=== PATIENT | male | born 1955 | race Asian ===

== ENCOUNTER 2016-07-29 11:00 | Inpatient (IN) | payer OTHER ==
--- NOTE | 2016-07-18 22:18 | HP ---
Amended report to correct date of admission/surgery. HISTORY AND PHYSICAL: DATE OF ADMISSION/SURGERY: 08/14/16 DATE OF OFFICE VISIT: 07/18/16 ATTENDING SURGEON: Dr. Simran Toney. PROCEDURE: Right total knee arthroplasty. CHIEF COMPLAINT: Right knee pain. HISTORY OF PRESENT ILLNESS: Mr. Prince is a 61-year-old gentleman that has had bilateral knee pain and arthritis for several years now. He is accompanied by his son, who is acting as a content development specialist. The patient reports that he continues to have 7 to 9/10 knee pain. He can no longer walk half of a block without severe pain. He has failed conservative treatment with anti-inflammatories, pain medication, intraarticular injections as well as physical therapy. He would like to undergo a right total knee arthroplasty which he would like to schedule for 07/29/16. PAST MEDICAL HISTORY: Ischemic heart disease with a past ID, hypertension, and gout. PAST SURGICAL HISTORY: Balloon angioplasty in 2011, cardiac stent. MEDICATIONS: 1. Simvastatin 40 mg 1 by mouth every night at bedtime. 2. Naproxen 500 mg 1 tablet q.12 hours p.r.n. pain. 3. Losartan potassium 50 mg 1 p.o. b.i.d. 4. Metoprolol 50 mg 1 p.o. b.i.d. 5. Aspirin 81 mg p.o. 6. Nitrostat 0.4 mg sublingual prn. 7. Allopurinol 300 mg 2 by mouth every day. ALLERGIES: No known drug allergies. FAMILY HISTORY: Negative. SOCIAL HISTORY: The patient lives with his spouse, works at [employer]. No tobacco, alcohol, or recreational drug use. Daughter and son-in-law are translators as much as possible. REVIEW OF SYSTEMS: General: The patient denies any fever, chills, or night sweats or anesthesia problems. HEENT: The patient denies any headaches, lightheadedness, or syncopal episodes. Integument: The patient denies any abrasions, lesions, or open wounds. Cardio: The patient denies any chest pain , palpitations, or edema. Pulmonary: The patient denies any shortness of breath with exertion, chronic cough, or COPD. GI: The patient denies any nausea, vomiting, diarrhea, or constipation. : The patient denies any nocturia, urinary frequency, urinary urgency, or history of UTIs. MSK: The patient admits to bilateral knee pain. Neuro: The patient denies any paresthesias or numbness. Endocrine: The patient denies any diabetes or thyroid issues. PHYSICAL EXAMINATION GENERAL: The patient is awake, alert, and oriented in no acute distress with appropriate mood and affect. PULMONARY: Lungs are clear to auscultation. Normal breath sounds. No wheezes , rales, or rhonchi. CARDIO: Regular rate and rhythm with normal S1, S2. No appreciable S3 or S4. No murmurs, rubs, or gallops. No edema. ABDOMEN: Positive bowel sounds in all 4 quadrants. Soft and nontender to palpation. MSK: The patient has extension to 10 degrees and flexion to about 95 degrees. This is the right lower extremity. Skin: The patient's skin is intact. There are no abrasions or open wounds. The patient has significant valgus deformity of knees. No varus or valgus instability. No varicosity or edema. No palpable masses or lymph nodes. 5/5 ankle dorsiflexion and plantar flexion strength. Full sensation to light touch in all nerve distributions and 2+ palpable dorsalis pedis pulse. IMAGING: Previous x-rays were reviewed and found to be suitable to undergo a right total knee replacement. ASSESSMENT: H and P for right total knee arthroplasty due to severe end-stage right knee osteoarthritis. PLAN: The patient is scheduled to undergo a right total knee arthroplasty on . He will return to the office in 10 to 14 days postop for followup and suture removal. A prescription for warfarin 2 mg, Percocet 5/325, Colace 100 mg was e-prescribed to the patient's pharmacy for postoperative pain management. FARHANA MORTON [id number]/[facility] #: [id number] NIKITA
[2016-08-13] MEDS ORDERED: Buffered Lidocaine 0.9% SYRIN* 5 ML/SYR SYRINGE INTRADERM ONE (14:41)
[2016-08-14] MEDS ORDERED: Dexamethasone IV* 4 MG/ML 1 ML (4 MG) IV SLOW PU ONE (06:00)
[2016-08-14] MEDS ORDERED: Scopolamine 1.5 mg* PATCH TRANSDERM ONE (06:00)
[2016-08-14] MEDS ORDERED: Famotidine IV* 10 MG/ML 2 ML (20 mg) IV ONE (06:00)
[2016-08-14] MEDS ORDERED: Scopolamine 1.5 mg* PATCH ONE (06:50)
[2016-08-14] MEDS ORDERED: Famotidine IV* 10 MG/ML 2 ML (20 mg) ONE (06:50)
[2016-08-14] MEDS ORDERED: Dexamethasone IV* 4 MG/ML 1 ML (4 MG) ONE (06:50)
[2016-08-14] MEDS ORDERED: ceFAZolin 2 GM PREMIX(*) 2 GM/50 ML BAG IVPB ONE (06:50)
[2016-08-14] MEDS ORDERED: Buffered Lidocaine 0.9% SYRIN* 5 ML/SYR SYRINGE ONE (06:51)
[2016-08-14] MEDS ORDERED: fentaNYL* 50 MCG/ML 2 ML VIAL (100 MCG VIAL) ONE (07:56)
[2016-08-14] MEDS ORDERED: Midazolam* 1 MG/ML 5 ML VIAL (5 MG) ONE (07:56)
[2016-08-14] MEDS ORDERED: Morphine PF AMP (0.5MG/ML)* 5 MG/10 ML AMP ONE (08:04)
[2016-08-14] MEDS ORDERED: Bupivacaine 0.5% SDV PF* 30 ML VIAL ONE (08:04)
[2016-08-14] MEDS ORDERED: EPHEDrine (Pressors)* 50 MG/ML VIAL ONE (08:35)
[2016-08-14] MEDS ORDERED: Propofol* 10 MG/ML 20 ML BTL IV PUSH ONE ×5 (08:42→10:39)
[2016-08-14] MEDS ORDERED: Lidocaine 2% PF * 5 ML VIAL ONE (08:42)
[2016-08-14] MEDS ORDERED: Metoprolol Tartrate IV* 1 MG/ML 5 ML VIAL ONE (09:23)
[2016-08-14] MEDS ORDERED: Phenylephrine IV* 40 MCG/ML 10 ML SYRINGE ONE (09:37)
[2016-08-14] MEDS ORDERED: PROCHLORPERAZINE INJ 5 MG/ML 2 ML VIAL IV PRN (09:48)
[2016-08-14] MEDS ORDERED: oxyCODONE TAB* 5 MG TAB PO PRN ×2 (09:48→09:49)
[2016-08-14] MEDS ORDERED: Acetaminophen IV 1GM/100ML * 100 ML IVPB ONE (09:48)
[2016-08-14] MEDS ORDERED: fentaNYL* 50 MCG/ML 2 ML VIAL (100 MCG VIAL) IV PRN (09:48)
[2016-08-14] MEDS ORDERED: Nalbuphine* 20 MG/ML 1 ML VIAL IV PRN ×2 (09:48→09:49)
[2016-08-14] MEDS ORDERED: Ondansetron INJ* 2 MG/ML VIAL IV PRN (09:49)
[2016-08-14] MEDS ORDERED: Naloxone* 0.4 MG/ML 1 ML VIAL IV PRN (09:49)
[2016-08-14] MEDS ORDERED: Lactated Ringers 500 ml BAG* 500 ML IV PRN ×2 (09:54→23:46)
[2016-08-14] MEDS ORDERED: EPHEDrine (Pressors)* 50 MG/ML VIAL IV PUSH PRN (09:54)
[2016-08-14] MEDS ORDERED: Phenylephrine INJ* 10 MG/ML 1 ML VIAL (10 MG) ONE (10:02)
[2016-08-14] MEDS ORDERED: Ropivacaine 0.2% EPIDURAL* 200 MG/100 ML BAG EPIDURAL ONE (10:35)
[2016-08-14] MEDS ORDERED: Acetaminophen IV 1GM/100ML * 100 ML ONE (10:41)
[2016-08-14] MEDS ORDERED: Magnesium Hydroxide LIQ* 30 ML UDC PO PRN (11:08)
[2016-08-14] MEDS ORDERED: Polyethylene Glycol 3350* 17 GM PACKET PO PRN (11:08)
[2016-08-14] MEDS ORDERED: Bisacodyl SUPP* 10 MG SUPP PR PRN (11:08)
[2016-08-14] MEDS ORDERED: Acetaminophen TAB* 325 MG PO PRN (11:08)
[2016-08-14] MEDS ORDERED: diPHENhydraMINE IV* 50 MG/ML 1 ml VIAL (BENADRYL) IV PRN (11:08)
[2016-08-14] MEDS ORDERED: Nitroglycerin TAB 0.4 MG* 0.4 MG TAB SL PRN (11:15)
[2016-08-14] MEDS ORDERED: Lidocaine 1% MPF wEPI 200,000* 30 ML SDV ONE (11:45)
[2016-08-14] MEDS ORDERED: Nalbuphine* 20 MG/ML 1 ML VIAL ONE (11:53)
--- NOTE | 2016-08-14 12:15 | RAD ---
HISTORY: Status post right knee arthroplasty COMPARISONS: May 26, 2016 VIEWS: 2, Frontal and lateral views of the right knee FINDINGS: BONE DENSITY: Normal. BONES: The patient is status post right knee arthroplasty. There is no hardware failure or osteolysis. JOINTS: The patient is status post right knee arthroplasty ALIGNMENT: There is no dislocation. SOFT TISSUES: Unremarkable. OTHER FINDINGS: None. IMPRESSION: STATUS POST RIGHT KNEE ARTHROPLASTY
[2016-08-14] MEDS: Ropivacaine 0.2% EPIDURAL* 200 MG/100 ML BAG EPIDURAL SCH (12:41)
--- NOTE | 2016-08-14 15:11 | CONSULT ---
Consult Consult: HOSPITALIST CONSULT Reason for Consultation: Medical co-management Requesting Provider: Dr. Toney HPI: Mr Prince is a 61 yo M who ahs a h/o ischemic heart disease, HTN and gout who was admitted following an elective R total knee replacement with Dr. Toney. The hospitalist service was asked to consult for medical co-management. The patient currently denies any pain in his R knee. He states it feels numb. He denies any nausea, he tolerated some of the clear liquid tray for lunch. He states he feels slightly dizzy currently. No SOB or CP. PMHx: CAD s/p stenting 2011, HTN, Gout PSHx: R TKR (08/14/16) All: NKDA Meds: current and home medication list reviewed. FamHx: both parents are . No family h/o CAD. SocHx: pt works at [employer], he is , his is his HCP. No EtOH or tobacco use. ROS: no CP, SOB, abd pain, N/V. Mild dizziness, no significant pain in his R kne -it is actually feeling numb. PE: Bp113/75 HR90 RR12 T97.4 O2 sat 98% on 2L gen: pt awake, alert, oriented, sitting up in bed, NAD HEENT: pupils 2mm, oropharynx clear and moist, no submandibular or cervical adenopathy, no thyromegaly. Card: nl S1S2 irregular HR, controlled rate, no LE edema Pulm: lungs CTA anteriorly Abd: BS + soft, NT, ND Musculo: full ROM UE, LE ROM not tested as only POD #0. R knee in cryo unit, hemovac drain with sanguinous drainage. Neuro: CN II-XII grossly intact, strength in UE nl, LE strength not tested at this time. Psych: sleepy, appropriate affect. A/P: Mr Prince is a 61 yo M who has a h/o CAD, HTN and gout who was admitted following an elective R total knee replacement. 1. R TKR: management per orthopedics. 2. CAD: no issues at this time. His HR sounded irregular on exam. Will get EKG to evaluate his rhythm. 3. HTN: BP is under excellent control at this time. Continue home medication regimen- Hold parameters were added to the orders. 4. HLD: continue lipitor. 5. Gout: continue allopurinol. 6. DVT-P: lovenox bridging to coumadin-management per orthopedics. 7. Full code 8. Will follow up tomorrow.
[2016-08-14 16:50] LABS: Hematocrit 37 % (42-52); Hemoglobin 11.8 g/dl (14.0-18.0); Mean Corpuscular HGB Conc 32 g/dl (31-36); Mean Corpuscular Hemoglobin 25 pg (27-31); Mean Corpuscular Volume 79 fL (80-94); Mean Platelet Volume 8 um3 (7.4-10.4); Red Blood Count 4.68 10^6/ul (4.0-5.4); Red Cell Distribution Width 16 % (10.5-15); White Blood Count 11.8 10^3/ul (3.5-10.8)
[2016-08-14] MEDS: ceFAZolin VIAL(*) 1 GM in NS 0.9% 50 ML* 50 ML IVPB SCH (16:52)
[2016-08-14] MEDS: Atorvastatin* 20 MG TAB PO SCH (16:52)
[2016-08-14] MEDS ORDERED: Warfarin TAB(*) 6 MG PO ONE (17:00)
[2016-08-14 17:05] LABS: BUN/Creatinine Ratio 18.2 (8-20); Calcium 8.8 mg/dL (8.6-10.3); EGFR African American 98.2 (>60); EGFR Non-African American 76.3 (>60)
[2016-08-14] MEDS ORDERED: Losartan TAB* 25 MG PO SCH (21:00)
[2016-08-14] MEDS ORDERED: Metoprolol Tartrate TAB* 50 mg PO SCH (21:00)
[2016-08-14] MEDS: Docusate CAP* 100 MG PO SCH (21:36)
[2016-08-14] MEDS: Allopurinol TAB* 300 MG PO SCH (21:36)
[2016-08-14] MEDS: Acetaminophen TAB* 325 MG PO SCH (21:36)
[2016-08-14] MEDS: Losartan TAB* 25 MG PO SCH (22:07)
[2016-08-14] MEDS ORDERED: Lactated Ringers 500 ml BAG* 500 ML IV ONE (23:00)
[2016-08-14] MEDS: Metoprolol Tartrate TAB* 50 mg PO SCH (23:21)
[2016-08-15] MEDS: ceFAZolin VIAL(*) 1 GM in NS 0.9% 50 ML* 50 ML IVPB SCH ×2 (00:15→07:46)
[2016-08-15] MEDS ORDERED: Ondansetron TAB* 4 MG PO PRN (01:49)
[2016-08-15] MEDS ORDERED: Ondansetron INJ* 2 MG/ML VIAL IV PRN (01:49)
[2016-08-15] MEDS: Acetaminophen TAB* 325 MG PO SCH ×2 (04:25→12:02)
[2016-08-15] MEDS: Ropivacaine 0.2% EPIDURAL* 200 MG/100 ML BAG EPIDURAL SCH (04:27)
[2016-08-15 06:19] LABS: Hematocrit 30 % (42-52); Hemoglobin 9.9 g/dl (14.0-18.0)
[2016-08-15 06:37] LABS: Calcium 8.6 mg/dL (8.6-10.3); EGFR African American 109.6 (>60); EGFR Non-African American 85.2 (>60)
[2016-08-15] MEDS: Allopurinol TAB* 300 MG PO SCH ×2 (07:39→21:02)
[2016-08-15] MEDS: oxyCODONE/Acetamin 5/325 MG* TAB PO PRN ×3 (07:39→17:47)
[2016-08-15] MEDS: Docusate CAP* 100 MG PO SCH ×2 (07:39→21:01)
[2016-08-15] MEDS: Enoxaparin(*) 30 MG/0.3 ML SYR SUBCUT SCH (07:41)
--- NOTE | 2016-08-15 07:42 | PN ---
Progress Note - Progress Note Date of Service: 08/15/16 SOAP: Subjective: Pt. is alert, nad. Pain is moderate. Objective: RLE - drain removed, tip intact, distally +df/pf, full sens lt, 2+ dp pulse. Vital Signs: Temp Pulse Resp BP Pulse Ox 98.2 F 87 16 100/65 98 08/15/16 07:23 08/15/16 07:23 08/15/16 07:39 08/15/16 07:23 08/15/16 07:23 Laboratory Results - last 24 hr 08/14/16 08/14/16 08/14/16 07:07 16:45 16:45 WBC 11.8 H RBC 4.68 Hgb 11.8 L Hct 37 L MCV 79 L MCH 25 L MCHC 32 RDW 16 H Plt Count 165 MPV 8 INR (Anticoag Therapy) Sodium 135 Potassium 4.0 Chloride 102 Carbon Dioxide 23 Anion Gap 10 BUN 18 Creatinine 0.99 Est GFR ( Amer) 98.2 Est GFR (Non-Af Amer) 76.3 BUN/Creatinine Ratio 18.2 Glucose 158 H Calcium 8.8 Troponin I 0.00 Antibody Screen Negative 08/15/16 08/15/16 08/15/16 05:52 05:52 05:52 WBC RBC Hgb 9.9 L Hct 30 L MCV MCH MCHC RDW Plt Count MPV INR (Anticoag Therapy) 1.16 H Sodium 132 L Potassium 4.0 Chloride 104 Carbon Dioxide 26 Anion Gap 2 BUN 18 Creatinine 0.90 Est GFR ( Amer) 109.6 Est GFR (Non-Af Amer) 85.2 BUN/Creatinine Ratio 20.0 Glucose 114 H Calcium 8.6 Troponin I Antibody Screen Assessment: 61 yo M pod 1 s/p RTKA Plan: wbat rle pt/ot 8 mg coumadin tonight, lovenox today plan d/c to home 08/16
[2016-08-15] MEDS: Losartan TAB* 25 MG PO SCH ×2 (07:56→21:01)
[2016-08-15] MEDS: Metoprolol Tartrate TAB* 50 mg PO SCH ×2 (07:56→21:01)
[2016-08-15] MEDS: oxyCODONE TAB* 5 MG TAB PO PRN ×2 (09:11→14:39)
[2016-08-15] MEDS: Morphine INJ* 2 MG/ML 1 ML SYRINGE IV PRN ×4 (09:12→21:01)
--- NOTE | 2016-08-15 15:37 | OP ---
OPERATIVE NOTE: DATE OF OPERATION: 08/14/16 DATE OF : 51 ATTENDING SURGEON: Simran Toney MD WARP KNIT OPERATOR: EARL Gray Ms. did help throughout the procedure with preparation of the leg, wound retraction, manipu lation of the knee, and wound closure. ANESTHESIOLOGIST: Dr. Mathis. ANESTHESIA: Spinal. PRE-OP DIAGNOSIS: Severe end-stage degenerative osteoarthritis of the right knee joint. POST-OP DIAGNOSIS: Severe end-stage degenerative osteoarthritis of the right knee joint. OPERATIVE PROCEDURE: Right total knee arthroplasty. TOURNIQUET TIME: 54 minutes. ESTIMATED BLOOD LOSS: 200 cc. COMPLICATIONS: None. SPECIMEN: Bone and cartilage from the right knee joint sent to pathology. HARDWARE USED: [employer] Cemented total knee hardware. Two packages of Simplex bone cement. For the femur a size 5 right Oxinium femoral component, for the tibia a size 5 tibial base plate G enesis 2, for the insert a size 5/6 11-mm posterior stabilized articular insert, and for the patella a 32-mm 3-peg all poly patella. BRIEF HISTORY/INDICATIONS: Mr. Prince is a 61-year-old gentleman with years of increasingly severe rig ht knee pain. He failed conservative treatment with antiinflammatories, pain medications, intraarti cular injections, and brace wear. Radiographs showed end-stage arthritis. Due to continued pain and decreased quality of life, the patient elected to undergo right total knee arthroplasty. Informed c onsent was obtained from the patient. He understood the risks of surgery included but were not limi toan to bleeding, infection, damage to nearby structures, continued pain, need for further surgery, i ntraoperative fracture, nerve palsy, hardware failure or loosening, knee stiffness, loss of motion, stroke, heart attack, blood clot, and . He wished to proceed. INTRAOPERATIVE FINDINGS: Intraoperatively, the patient was noted to have significant varus deformit y. He had a 20-degree flexion contracture with 130 degrees of flexion. Postop range of motion was full extension to 130 degrees of flexion. DESCRIPTION OF PROCEDURE: Mr. Prince was identified in the preanesthesia unit. His right lower extrem ity was marked as the correct operative site. Informed consent was signed and placed in the chart. The patient was taken to the operating room and placed under spinal anesthesia without difficulty. Edward catheter was placed. Tourniquet was placed on the right thigh. Right lower extremity was pre pped and draped in the usual sterile fashion. Preop time-out was made to correctly identify the pat ient, side and site. Appropriate perioperative antibiotics were given within 1 hour of incision. Tourniquet was inflated until tourniquet time for this procedure was 54 minutes. A midline incision was made at 14 cm. A new 10-blade was used to make a standard medial parapatellar arthrotomy. The patella was subluxed laterally. There was extensive osteophyte formation in all compartments of th e knee with full-thickness loss of cartilage. Electrocautery was used to subperiosteally elevate so ft tissue off the superomedial tibia to the mid sagittal plane. Large amount of osteophytes were re moved along the medial tibia. The knee was flexed up. Anterior horn of the lateral meniscus and AC L were sharply released. A drill was used to enter the distal femur. Intramedullary distal femoral cutting guide was pinned on the distal femur. 9 mm of distal femoral bone was carefully removed wi an oscillating saw. External rotation guide was placed on the distal femur and the femur was size d to a size 5. Size 5 multi cutting jig was pinned on the distal femur. The oscillating saw was us ed to make the appropriate 4 chamfer cuts. All bony fragments were carefully removed. The PCL was completely released and the tibia was subluxed anteriorly. Extramedullary tibial cutting guide was pinned on the proximal tibia and oscillating saw was used to make a proximal tibial cut perpendicular to the mechanical axis of the tibia. The bone was careful ly removed. The knee was brought out into full extension and had good medial and lateral ligamentou s balancing. The knee was in full extension. Flexion and extension gaps were well balanced. Ashutosh a water resources project manager was placed both medially and laterally. Any remaining meniscus was carefully removed wit h electrocautery. Remaining posterior osteophytes were removed using curved osteotome. A size 5 ri ght femoral trial was impacted on the distal femur and had good fit. The box for the posterior stab ilized implant prepared using a reamer and box-cut osteotome. A size 5 tibial tray trial with a 9-mm insert trial was placed. The knee was taken through range of motion and noted to have full extension to 130 degrees of flexion with good patellofemoral tracking . The patella was everted. A large amount of osteophyte was removed from around the patella. 9 mm of patellar bone and cartilage was carefully removed with an oscillating saw. The patella was sized t o a size 32. Three peg holes were drilled through the size 32 guide. 32 trial was placed and the k nee was taken through range of motion. There was good patellofemoral tracking. All trials were carefully removed at this time. Tibia was subluxed anteriorly and sized to a size 5 . Proximal tibia was prepared using a keel punch size 5. All bony cut surfaces were copiously irri gated with sterile saline and dried. Final implants were cemented into place starting with the tibi a followed by the femur and last the patella. An 11-mm insert trial was placed and the knee was bro ught out into full extension. The tourniquet was turned down at 54 minutes. The knee was copiously irrigated with sterile saline. Electrocautery was used to obtain meticulous hemostasis. Once the cement had fully cured, the insert trial was removed. Any excess cement was carefully removed from around the implants and capsule. Final insert chosen was an 11-mm posterior stabilized articular in sert Starla 2 size 5/6. This was locked into position on the tibial tray without difficulty. Stab ility of the insert was checked and noted to be stable. The knee was copiously irrigated with sterile saline. The extensor mechanism was closed using inter rupted #1 Vicryl over a medium Hemovac drain. The rest of the incision was closed in a layered fash ion using 0 and 2-0 Vicryl. Skin was closed using running 3-0 nylon suture. Sterile Xeroform, 4x4' s, and Webril were used to cover the incision. Terry wrap and cold pack were placed over this. The earl aguilarvanessa's anesthesia was reversed without difficulty. He was taken to the PACU in stable condition. Intended weight bearing will be weight bearing as tolerated. Intended DVT prophylaxis will be Coumad in with a Lovenox bridge. [id number]/[facility] #: [id number]
[2016-08-15] MEDS ORDERED: Warfarin TAB(*) 4 MG PO ONE (17:00)
--- NOTE | 2016-08-15 17:31 | PN ---
Subjective Date of Service: 08/15/16 Interval History: Patient seen and examined at bedside. Denies dizziness, CP, SOB, n/v. Reports good PO intake. States his right leg feels painful and the muscles are tight. Discussed with nursing, pain medication pending. No other acute concerns. Son at bedside. He is happy with progress. Family History: Unchanged from Admission Social History: Unchanged from Admission Past Medical History: Unchanged from Admission Objective Active Medications: Allopurinol (Zyloprim Tab*) 300 mg PO BID [facility] Last Admin: 08/15/16 07:39 Dose: 300 mg Atorvastatin Calcium (Lipitor*) 20 mg PO 1700 [facility] Last Admin: 08/14/16 16:52 Dose: 20 mg Bisacodyl (Dulcolax Supp*) 10 mg AL DAILY PRN PRN Reason: constipation Diphenhydramine HCl (Benadryl Iv*) 12.5 mg IV Q6H PRN PRN Reason: PRURITIS Docusate Sodium (Colace Cap*) 100 mg PO BID [facility] Last Admin: 08/15/16 07:39 Dose: 100 mg Enoxaparin Sodium (Lovenox(*)) 30 mg SUBCUT Q24H [facility] Last Admin: 08/15/16 07:41 Dose: 30 mg Ropivacaine (Ropivacaine 0.2% Epidural*) 200 mg in 100 mls @ 0 mls/hr EPIDURAL .PER RATE NOHEMY; Per Protocol PRN Reason: Protocol Last Admin: 08/15/16 04:27 Dose: 4 mls/hr Lactated Ringer's (Lactated Ringers 500 Ml Bag*) 500 mls @ 2,000 mls/hr IV ONCE PRN PRN Reason: FOR SBP < 90 Lactated Ringer's (Lactated Ringers 1000 Ml Bag*) 1,000 mls @ 100 mls/hr IV PER RATE [facility] Last Admin: 08/15/16 11:12 Dose: 100 mls/hr Lactated Ringer's (Lactated Ringers 500 Ml Bag*) 500 mls @ 500 mls/hr IV ONCE PRN PRN Reason: LOW BLOOD PRESSURE Last Admin: 08/15/16 00:39 Dose: 500 mls/hr Lactulose (Lactulose*) 30 ml PO Q6H PRN PRN Reason: constipation Losartan Potassium (Cozaar Tab*) 50 mg PO BID [facility] Last Admin: 08/15/16 07:56 Dose: Not Given Magnesium Hydroxide (Milk Of Magnesia Liq*) 30 ml PO Q6H PRN PRN Reason: constipation Metoprolol Tartrate (Lopressor Tab*) 50 mg PO BID [facility] Last Admin: 08/15/16 07:56 Dose: Not Given Morphine Sulfate (Morphine Inj (Syringe)*) 2 mg IV Q2H PRN PRN Reason: PAIN Last Admin: 08/15/16 14:39 Dose: 2 mg Nitroglycerin (Nitroglycerin Tab 0.4 Mg*) 0.4 mg SL Q5M PRN PRN Reason: PAIN - CHEST; MDD= 3 TABS Ondansetron HCl (Zofran Inj*) 4 mg IV Q6H PRN PRN Reason: nausea Ondansetron HCl (Zofran Tab*) 4 mg PO Q6H PRN PRN Reason: NAUSEA Last Admin: 08/15/16 11:13 Dose: 4 mg Oxycodone HCl (Roxycodone Tab*) 10 mg PO Q4H PRN PRN Reason: SEVERE PAIN Last Admin: 08/15/16 14:39 Dose: 10 mg Oxycodone/Acetaminophen (Percocet 5/325 Tab*) 1 tab PO Q3H PRN PRN Reason: PAIN - MODERATE Last Admin: 08/15/16 07:39 Dose: 1 tab Oxycodone/Acetaminophen (Percocet 5/325 Tab*) 2 tab PO Q3H PRN PRN Reason: PAIN - MODERATE Last Admin: 08/15/16 11:12 Dose: 2 tab Pharmacy Profile Note (Scopolomine Patch Remove*) 1 note PATCH OFF ONCE ONE Stop: 08/17/16 06:01 Pharmacy Profile Note (Coumadin Daily Reminder*) 1 note FOLLOW UP 1700 [facility] Polyethylene Glycol/Electrolytes (Miralax*) 17 gm PO DAILY PRN PRN Reason: Constipation Vital Signs 08/14/16 08/14/16 08/14/16 17:39 17:41 18:19 Temperature 98.2 F Pulse Rate 100 50 Respiratory 18 20 Rate Blood Pressure 94/53 (mmHg) O2 Sat by Pulse 96 Oximetry 08/14/16 08/14/16 08/14/16 18:27 19:15 20:20 Temperature 98.5 F Pulse Rate 101 Respiratory 16 17 Rate Blood Pressure 94/64 (mmHg) O2 Sat by Pulse 98 96 Oximetry 08/14/16 08/14/16 08/14/16 21:28 22:00 22:47 Temperature 98.9 F 98.3 F Pulse Rate 101 95 Respiratory 18 20 18 Rate Blood Pressure 106/58 92/65 (mmHg) O2 Sat by Pulse 94 95 Oximetry 08/14/16 08/14/16 08/15/16 23:20 23:45 00:21 Temperature Pulse Rate 82 Respiratory Rate Blood Pressure 96/62 92/56 (mmHg) O2 Sat by Pulse 97 Oximetry 08/15/16 08/15/16 08/15/16 01:47 03:16 03:20 Temperature 99.3 F Pulse Rate 90 Respiratory 16 Rate Blood Pressure 98/60 100/62 (mmHg) O2 Sat by Pulse 100 Oximetry 08/15/16 08/15/16 08/15/16 07:23 07:39 08:00 Temperature 98.2 F Pulse Rate 87 Respiratory 14 16 16 Rate Blood Pressure 100/65 (mmHg) O2 Sat by Pulse 98 98 Oximetry 08/15/16 08/15/16 08/15/16 09:11 09:12 11:12 Temperature Pulse Rate Respiratory 16 16 16 Rate Blood Pressure (mmHg) O2 Sat by Pulse Oximetry 08/15/16 08/15/16 08/15/16 11:21 12:21 12:22 Temperature 98.9 F Pulse Rate 85 Respiratory 20 16 13 Rate Blood Pressure 109/91 (mmHg) O2 Sat by Pulse 94 Oximetry 08/15/16 08/15/16 14:39 15:39 Temperature Pulse Rate Respiratory 16 18 Rate Blood Pressure (mmHg) O2 Sat by Pulse Oximetry Oxygen Devices in Use Now: None Appearance: Middle aged male, sitting up in bed, NAD Eyes: PERRLA Ears/Nose/Mouth/Throat: Mucous Membranes Moist Neck: NL Appearance and Movements; NL JVP Respiratory: Symmetrical Chest Expansion and Respiratory Effort, Clear to Auscultation Cardiovascular: NL Sounds; No Murmurs; No JVD, RRR Abdominal: NL Sounds; No Tenderness; No Distention Extremities: - - mild pedal edema, 2+ distal pulses, brisk cap refill Neurological: Alert and Oriented x 3 Lines/Tubes/Other Access: Clean, Dry and Intact Peripheral IV Nutrition: Taking PO's Result Diagrams: 08/15/16 05:52 08/15/16 05:52 Assess/Plan/Problems-Billing Assessment: Mr Prince is a 61 yo M who has a h/o CAD, HTN and gout who was admitted following an elective R total knee replacement. - Patient Problems (1) Status post total right knee replacement Code(s): Z96.651 - PRESENCE OF RIGHT ARTIFICIAL KNEE JOINT Comment: POD #1, management per ortho HH stable Continue PT/OT Pain management, add cyclobenzaprine prn (2) Hyponatremia Current Visit: Yes Code(s): E87.1 - HYPO-OSMOLALITY AND HYPONATREMIA Comment : Mild, suspect secondary to volume depletion following surgery Recheck in AM Continue LR (3) CAD (coronary artery disease) Code(s): I25.10 - ATHSCL HEART DISEASE OF [place] CORONARY ARTERY W/O ANG PCTRS Comment: Stable Previous EKG showed atrial trigeminy, now with RRR Likely secondary to anesthesia and demand ischemia No further c/o chest pain Continue statin, home ASA on hold post-operatively EKG did not have any concerning ST segment changes, trop negative (4) HTN (hypertension) Code(s): I10 - ESSENTIAL (PRIMARY) HYPERTENSION Comment: Currently mildly hypotensive to normotensive Continue losartan with hold parameters Suspect hypotension secondary to epidural Afebrile, HR in 80s Continue IVF, encourage PO intake (5) HLD (hyperlipidemia) Code(s): E78.5 - HYPERLIPIDEMIA, UNSPECIFIED Comment: Continue atorvastatin (6) Gout Code(s): M10.9 - GOUT, UNSPECIFIED Comment: Continue allopurinol. (7) DVT prophylaxis Comment: Per ortho SQ Lovenox
[2016-08-15] MEDS: Cyclobenzaprine TAB* 10 MG PO PRN ×2 (17:47→22:11)
[2016-08-15] MEDS: Atorvastatin* 20 MG TAB PO SCH (17:48)
[2016-08-16] MEDS ORDERED: HYDROmorphone* 1 MG/ML 1 ML SYR IV ONE (01:00)
[2016-08-16] MEDS: Ketorolac INJ* 30 MG/ML 1 ML VIAL IV SCH ×3 (01:06→12:18)
[2016-08-16] MEDS: oxyCODONE/Acetamin 5/325 MG* TAB PO PRN ×2 (06:26→14:17)
[2016-08-16 07:14] LABS: Hematocrit 31 % (42-52); Mean Corpuscular HGB Conc 33 g/dl (31-36); Mean Corpuscular Hemoglobin 26 pg (27-31); Mean Corpuscular Volume 79 fL (80-94); Mean Platelet Volume 8 um3 (7.4-10.4); Red Blood Count 3.88 10^6/ul (4.0-5.4); Red Cell Distribution Width 16 % (10.5-15); White Blood Count 9.3 10^3/ul (3.5-10.8)
--- NOTE | 2016-08-16 07:59 | RAD ---
HISTORY: Postop fever COMPARISONS: July 22, 2016 VIEWS: 2: Frontal dual-energy and lateral views of the chest. FINDINGS: CARDIOMEDIASTINAL SILHOUETTE: The cardiomediastinal silhouette is normal. PK: The pk are normal. PLEURA: The costophrenic angles are sharp. No pleural abnormalities are noted. LUNG PARENCHYMA: The lungs are clear. ABDOMEN: The upper abdomen is clear. There is no subphrenic gas. BONES AND SOFT TISSUES: Degenerative changes are noted along the spine. Small radiopaque foreign bodies are noted in the soft tissues of the lower anterior chest. OTHER: None. IMPRESSION: NO ACTIVE CARDIOPULMONARY DISEASE.
[2016-08-16] MEDS: Docusate CAP* 100 MG PO SCH (08:18)
[2016-08-16] MEDS: oxyCODONE TAB* 5 MG TAB PO PRN (08:18)
[2016-08-16] MEDS: Allopurinol TAB* 300 MG PO SCH (08:18)
[2016-08-16] MEDS: Enoxaparin(*) 30 MG/0.3 ML SYR SUBCUT SCH (08:19)
[2016-08-16] MEDS: Losartan TAB* 25 MG PO SCH (08:27)
[2016-08-16] MEDS: Metoprolol Tartrate TAB* 50 mg PO SCH (08:27)
--- NOTE | 2016-08-16 08:45 | PN ---
Progress Note - Progress Note Date of Service: 08/16/16 SOAP: Subjective: [Pt was seen this morning sitting up in chair. He states that he is feeling better today. He did spike a fever last night of 102 which he was seen by the hospitalist team for. He had a chest x-ray this morning. Pt denies any SOB, Chest pain or palpitations. ] Objective: [General: Pt is A&O, NAD MSK: R knee dressing changed today. The incision appears c/d/i. No wound breakdown is apparent. No erythema is noted. Old dressing had some bloody discharge present. Pt is able to df/pf. NV intact. ] Vital Signs Temp 98.9 F 08/16/16 08:06 Pulse 71 08/16/16 08:06 Resp 16 08/16/16 08:18 BP 97/64 08/16/16 08:06 Pulse Ox 96 08/16/16 08:06 Intake & Output 08/15/16 08/16/16 08/16/16 18:59 06:59 18:59 Intake Total 2015 1174 844 Output Total 0 1475 Balance 2015 -301 844 Intake: IV Fluids 1753 674 844 LR 1753 674 844 Oral 263 500 Output: Urine 0 1475 Other: # Bowel Movements 0 Assessment: [Post op Day 2 RTKA ] Plan: [Continue current pain management. Continue PT/OT Possible discharge today: if pt stays afebrile and does well with afternoon PT then discharge home today. Coumadin 8mg tonight. ]
[2016-08-16 11:23] VITALS: BP 112/67
[2016-08-17] MEDS ORDERED: Scopolomine PATCH Remove* 1 NOTE MISC PATCH OFF ONE (06:00)
--- NOTE | 2016-08-23 02:31 | DS ---
DISCHARGE SUMMARY: DATE OF ADMISSION: 08/14/16 DATE OF DISCHARGE: 08/16/16 ADMITTING DIAGNOSIS: Right total knee arthroplasty. CONSULTATIONS: Physical Therapy, Occupational Therapy and Hospitalist Medicine. HISTORY OF PRESENT ILLNESS: Mr. Prince is a 61-year-old gentleman that has bilateral knee pain and art hritis for several years now. He can no longer walk half a block without severe pain. He has faile d conservative treatment with antiinflammatories, pain medication, intraarticular injections as well as physical therapy. He would like to undergo right total knee arthroplasty, which he had done on 08/14/16. HOSPITAL COURSE: The patient was admitted to [facility] on 08/14/16 and underwent a righ t total knee arthroplasty with no complications. The patient recovered briefly in the postanesthesi a care unit and was transferred to the short stay surgical unit in stable condition. On postop day #1, the patient's H and H was 9.9 and 30, and INR was 1.16 after 6 mg of Coumadin the night before. Dressing was clean, dry, and intact. Right lower extremity was neurovascularly intact. He could d emonstrate dorsi and plantar flexion with good strength. The patient was able to get out of bed wit h physical therapy. Pain was well controlled with Percocet 2 tablets. On 08/16/16 at 0001, the pat ient's temperature was 102.0 temp, oral; at 0119, the temperature was retaken orally and was found t o be 98.0. The patient had a chest x-ray ordered and the x-ray was deemed negative by me and by rad iologist. On postop day #2, the urinary catheter was discontinued and the patient was able to void without difficulty. The incision was found to be benign with minimal drainage, no erythema or warmt h. The patient's H and H was 10 and 31, INR was 1.24 after 8 mg of Coumadin the night before. Pain was controlled with Percocet 1 tablet. The patient was able to ambulate with the use of a rolling w alker and assistance. The patient's pain was well controlled and was found stable for discharge. DISCHARGE CONDITION: Good. MEDICATIONS: Discharge Medications: 1. Percocet 5/325. 2. Warfarin sodium 2 mg. 3. Colace. Home Medications: 1. Simvastatin 40 mg. 2. Naproxen 500 mg. 3. Losartan potassium 50 mg. 4. Metoprolol 50 mg. 5. Aspirin 81 mg. 6. Nitrostat 0.4 mg. 7. Allopurinol 300 mg. DISCHARGE INSTRUCTIONS: Weightbearing as tolerated. Wound care: Okay to shower; no bathing, swimming or submerging the wound. Use gentle soap, pat dry . Cover with gauze, Terry wrap or tape. Call orthopedic office for increased drainage, redness, incr eased pain, or fever. Go to the ER with shortness of breath or chest pain. Diet: Regular diet, increase fluids and fiber to prevent constipation. Continue to use stool softe ners, call our office if no bowel movements within 48 hours. Continue physical therapy and occupational therapy exercises as shown. Visiting home nurses to do wound checks and to draw blood for INR on Mondays and . Coumadin dosing; 8 mg tonight and then 4 mg tomorrow and then recheck on Thursday. Percocet 5/325 one to two tablets every 4 to 6 hours as needed for pain. Antibiotics required prior to any dental work. FOLLOWUP: Follow up with Dr. Simran Toney within 10 to 14 days, call for appointment. FARHANA MORTON [id number]/[id number] #: [id number]
== END 2016-08-16 15:25 | disposition home health service (06) | DRG 470 ==
LOC: AA 08-14 06:45 → SSU 08-14 14:12
PROVIDERS: ADMIT Orthopaedic Surgery Adult Reconstructive Orthopaedic Surgery; ATTEND Orthopaedic Surgery Adult Reconstructive Orthopaedic Surgery
PROC: 5A09357 Assistance with Respiratory Ventilation, Less than 24 Consecutive Hours, Continuous Positive Airway Pressure (ICD-10-PCS; 2016-08-14)
PROC: 0SRC0J9 Replacement of Right Knee Joint with Synthetic Substitute, Cemented, Open Approach (ICD-10-PCS; principal; 2016-08-14 08:00)
DX: M17.11 Unilateral primary osteoarthritis, right knee (principal); E87.1 Hypo-osmolality and hyponatremia; I95.9 Hypotension, unspecified; I25.9 Chronic ischemic heart disease, unspecified; I10 Essential (primary) hypertension; M10.9 Gout, unspecified; I25.10 Atherosclerotic heart disease of native coronary artery without angina pectoris; R00.8 Other abnormalities of heart beat; R50.9 Fever, unspecified; M21.161 Varus deformity, not elsewhere classified, right knee; M25.761 Osteophyte, right knee; I25.2 Old myocardial infarction; Z95.5 Presence of coronary angioplasty implant and graft
CPT/HCPCS: 36415; 71020; 80048; 84484; 85014; 85018; 85027; 85610; 86850; 86900; 86901; 87086; 88305; 88311; 93005; 94760; A9270-GY; C1776; J0690; J1100; J1170; J1650; J1885; J2001; J2250; J2270; J2300; J2704; J2795; J3010

== ENCOUNTER 2021-04-05 14:15 | Observation (INO) ==
[2021-04-05 15:05] LABS: ABS Basophils 0.1 10^3/ul (0-0.2); ABS Eosinophils 0.3 10^3/ul (0-0.6); ABS Lymphocytes 1.6 10^3/ul (1.0-4.8); ABS Monocytes 0.7 10^3/ul (0-0.8); ABS Neutrophils 4.1 10^3/ul (1.5-7.7); Eosinophil % 3.7 %; Hematocrit 42 % (42-52); Hemoglobin 13.6 g/dL (14.0-18.0); Mean Corpuscular HGB Conc 32 g/dL (31-36); Mean Corpuscular Hemoglobin 26 pg (27-31); Mean Corpuscular Volume 79 fL (80-94); Mean Platelet Volume 9.4 fL (7.4-10.4); Nucleated Red Blood Cells % 0.1; Platelet Count 175 10^3/uL (150-450); Red Blood Count 5.33 10^6 /uL (4.18-5.48); Red Cell Distribution Width 17 % (10-15); White Blood Count 6.9 10^3/uL (3.5-10.8)
[2021-04-05 15:25] LABS: ALT 13 U/L (7-52); AST 22 U/L (13-39); Albumin/Globulin Ratio 1.1 (1-3); Alkaline Phosphatase 81 U/L (35-149); Anion Gap 7 mmol/L (2-11); Blood Urea Nitrogen 17 mg/dL (6-24); CO2 Carbon Dioxide 25 mmol/L (22-32); Calcium 9.7 mg/dL (8.6-10.3); Chloride 104 mmol/L (101-111); Globulin 3.7 g/dL (2-4); Glucose 145 mg/dL (70-100); Magnesium 1.7 mg/dL (1.9-2.7); Sodium 136 mmol/L (135-145); Total Protein 7.7 g/dL (6.4-8.9); eGFR CKD-EPI 68.3 (>60)
[2021-04-05] MEDS ORDERED: Diltiazem IV push/loading dose 5 MG/ML 5 ML vial (25 mg) IV SLOW PU ONE (15:25)
[2021-04-05 15:41] LABS: Troponin I 0.04 ng/mL (<0.03)
[2021-04-05] MEDS ORDERED: Magnesium Sulfate 2 gm BAG 2 GM/50 ML BAG IVPB ONE (19:15)
[2021-04-05] MEDS ORDERED: Enoxaparin 40 MG/0.4 ML SYR SUBCUT SCH (20:00)
[2021-04-05 21:37] LABS: Troponin I 0.04 ng/mL (<0.03)
[2021-04-05] MEDS: Enoxaparin 100 MG/ML SYR SUBCUT SCH (22:08)
[2021-04-06 06:32] LABS: Calcium 9.7 mg/dL (8.6-10.3); Potassium 4.4 mmol/L (3.5-5.0); eGFR CKD-EPI 73.6 (>60)
[2021-04-06] MEDS: Aspirin EC 81 mg TAB.EC (enteric coated) PO SCH (09:25)
[2021-04-06] MEDS: Enoxaparin 100 MG/ML SYR SUBCUT SCH ×2 (09:26→20:06)
[2021-04-06 10:48] LABS: Magnesium 1.9 mg/dL (1.9-2.7)
[2021-04-07] MEDS: Aspirin EC 81 mg TAB.EC (enteric coated) PO SCH (10:11)
[2021-04-07] MEDS: Enoxaparin 100 MG/ML SYR SUBCUT SCH (10:12)
[2021-04-07 13:03] VITALS: BP 123/86
== END 2021-04-07 16:05 | disposition home or self-care (01) ==
LOC: ED 14:15 → SUATTDRO 19:12 → EDHOLD 19:12 → INTOOBSV 19:12 → MEDTELE 21:26
PROVIDERS: ADMIT Internal Medicine; ATTEND Internal Medicine